=== PATIENT | female | born 1990 | race Caucasian/White ===

== ENCOUNTER 2021-01-10 12:53 | Outpatient (CLI) | payer BC ==
[2021-01-10 23:52] LABS: SARS-CoV-2 PCR by NAA Not Detected (NotDetected)
== END 2021-01-10 12:54 | disposition home or self-care (01) ==
LOC: CSHLAB 12:53
PROVIDERS: ATTEND Obstetrics & Gynecology
DX: Z20.822 Contact with and (suspected) exposure to COVID-19 (principal)
CPT/HCPCS: 87635; U0003; U0005

== ENCOUNTER 2021-01-13 23:26 | Inpatient (IN) | payer BC ==
[2021-01-14] MEDS ORDERED: Fentanyl 4 mcg/Bup 0.1% Cadd 100 ML ONE (00:10)
[2021-01-14 00:18] LABS: Mean Corpuscular HGB CONC 33.4 g/dL (32.0-36.0); Mean Corpuscular Hemoglobin 30.1 pg (27.0-33.0); Mean Corpuscular Volume 90.1 fl (81.6-98.3); Mean Platelet Volume 10.4 fl (7.4-10.4); Platelet Count 183 10x3/uL (150-450); RBC Distribution Width 12.8 % (11.5-14.5); Red Blood Cell (RBC) Count 4.65 10x6/uL (3.90-5.03); White Blood Cell (WBC) Count 10.8 10x3/uL (3.5-10.5)
[2021-01-14 00:23] VITALS: BMI 37.1
[2021-01-14 01:10] LABS: Syphilis Antibody Nonreactive (Nonreactive); Syphilis Antibody Index 0.02 S/CO (<1.00 Non-Reactive)
[2021-01-14 01:11] LABS: Hep B Surf Ag Non-Reactive S/CO (NonReactive)
[2021-01-14 01:20] LABS: HBSAg Index 0.19 S/CO (0-0.99)
[2021-01-14] MEDS ORDERED: Naloxone HCl 0.4 mg/ml Vial IVP PRN ×2 (01:26)
[2021-01-14] MEDS ORDERED: Ondansetron PF 4 MG/2 ML Vial IVP PRN (01:26)
[2021-01-14] MEDS ORDERED: Lactated Ringer's 500 ML IV PRN (01:26)
[2021-01-14] MEDS ORDERED: ePHEDrine 50 MG/ML VIAL SLOW IVP PRN (01:26)
[2021-01-14] MEDS ORDERED: diphenhydrAMINE 50 MG/ML VIAL IVP PRN (01:26)
[2021-01-14] MEDS ORDERED: Promethazine HCl 25 MG/ML VIAL IM PRN (01:26)
[2021-01-14] MEDS ORDERED: Acetaminophen 325 MG TAB PO PRN (01:26)
[2021-01-14] MEDS ORDERED: Fentanyl 4 mcg/Bupivacaine 0.1% Cassette 100 ML EPIDURAL SCH (01:30)
[2021-01-14] MEDS ORDERED: Communication Order-Pharmacy FS SCH (01:30)
[2021-01-14] MEDS ORDERED: NS w/ Oxytocin 30 units 500 ML ONE ×2 (01:48→03:22)
[2021-01-14] MEDS ORDERED: NS / Oxytocin 40 units/1000ml 1,000 ML IV SCH (03:43)
[2021-01-14] MEDS ORDERED: Benzocaine-Menthol 82.5 ML CAN TOP PRN (03:43)
[2021-01-14] MEDS ORDERED: Preparation H Ointment 28 GM TUBE PR PRN (03:43)
[2021-01-14] MEDS ORDERED: Bisacodyl 10 MG SUPP PR PRN (03:43)
[2021-01-14] MEDS ORDERED: hydrALAZINE 20 MG/ML VIAL SLOW IVP PRN (03:43)
[2021-01-14] MEDS ORDERED: traMADol HCl 50 MG TAB PO PRN (03:43)
[2021-01-14] MEDS ORDERED: Milk Of Magnesia 30 ML UDCUP PO PRN (03:43)
[2021-01-14] MEDS ORDERED: Ondansetron PF 4 MG/2 ML Vial ONE (04:02)
[2021-01-14] MEDS ORDERED: Bupivacaine 0.25% HCL 30 ML VIAL ONE (08:00)
[2021-01-14] MEDS ORDERED: Adacel (T-DAP) 0.5 ML SYRINGE IM ONE (09:00)
[2021-01-14] MEDS: Ferrous Sulfate 325 MG TAB PO SCH ×2 (09:08→18:04)
[2021-01-14] MEDS: Docusate Calcium (SURFAK) 240 MG CAP PO SCH ×2 (09:11→21:56)
[2021-01-14] MEDS: Prenatal Vitamin 1 TAB PO SCH (09:11)
[2021-01-14] MEDS: Ibuprofen 800 MG TAB PO SCH ×3 (09:12→21:57)
[2021-01-15] MEDS: Ibuprofen 800 MG TAB PO SCH (05:15)
[2021-01-15 08:11] VITALS: BP 107/58; TEMP 98
[2021-01-15] MEDS: Ferrous Sulfate 325 MG TAB PO SCH (08:53)
[2021-01-15] MEDS: Prenatal Vitamin 1 TAB PO SCH (09:08)
[2021-01-15] MEDS: Docusate Calcium (SURFAK) 240 MG CAP PO SCH (09:08)
== END 2021-01-15 14:15 | disposition home or self-care (01) | DRG 807 ==
LOC: CSHLD/OP 23:26 → CSHLD 23:58 → UNDOADMIN 01-14 03:49 → CSHLD 01-14 03:49 → CSHPP 01-14 04:45 → CSHLD 01-14 04:45 → UNDODISIN 01-15 14:15
PROVIDERS: ADMIT Obstetrics & Gynecology; ATTEND Obstetrics & Gynecology
PROC: 10E0XZZ Delivery of Products of Conception, External Approach (ICD-10-PCS; principal; 2021-01-15)
PROC: 0HQ9XZZ Repair Perineum Skin, External Approach (ICD-10-PCS; 2021-01-15)
DX: O70.0 First degree perineal laceration during delivery (principal); Z37.0 Single live birth; Z3A.39 39 weeks gestation of pregnancy
CPT/HCPCS: 36415; 51701; 85027; 86780; 86850; 86900; 86901; 87340; 99285; J2405; J2590; S0020

== ENCOUNTER 2021-01-20 14:53 | Emergency (ER) | payer BC | END 2021-01-20 16:37 | disposition home or self-care (01) | LOC: CSHERS 14:53 | DX: I83.811 Varicose veins of right lower extremity with pain (principal) ==

== ENCOUNTER 2023-06-16 15:24 | Inpatient (IN) | payer BC ==
[2023-06-16] MEDS ORDERED: NS w/ Oxytocin 30 units 500 ML IV SCH ×2 (20:01)
[2023-06-16] MEDS ORDERED: Lactated Ringer's 1,000 ML IV SCH (20:01)
[2023-06-16] MEDS ORDERED: Zolpidem Tartrate 5 MG TAB PO PRN (20:01)
[2023-06-16] MEDS ORDERED: fentaNYL 50 mcg/mL 1 mL Vial SLOW IVP PRN (20:01)
[2023-06-16] MEDS ORDERED: Misoprostol 200 MCG TAB PR PRN (20:01)
[2023-06-16] MEDS ORDERED: Diphenoxylate HCl/Atropine Tablet PO PRN ×2 (20:01)
[2023-06-16] MEDS ORDERED: Promethazine HCl 25 MG/ML VIAL IM PRN (20:01)
[2023-06-16] MEDS ORDERED: Carboprost 250 MCG/ML AMP IM PRN (20:01)
[2023-06-16] MEDS ORDERED: Lidocaine 1% (PF) 30 ML VIAL SC PRN (20:01)
[2023-06-16] MEDS ORDERED: Methylergonovine 0.2 MG/ML VIAL IM PRN (20:01)
[2023-06-16] MEDS ORDERED: Ibuprofen 800 MG TAB PO PRN (20:01)
[2023-06-16] MEDS ORDERED: hydrALAZINE 20 MG/ML VIAL SLOW IVP PRN (20:01)
[2023-06-16] MEDS ORDERED: Ondansetron PF 4 MG/2 ML Vial IVP PRN (20:01)
[2023-06-16] MEDS ORDERED: HYDROcodone/Acetaminophen 5/325 mg Tablet PO PRN ×2 (20:01)
[2023-06-16] MEDS ORDERED: Acetaminophen 500 MG TAB PO PRN (20:01)
[2023-06-16 20:07] VITALS: BMI 37.9
[2023-06-16] MEDS: Misoprostol 100 MCG TAB VAG SCH (21:22)
[2023-06-16 21:44] LABS: Hematocrit 40.8 % (34.9-44.5); Hemoglobin 14.4 g/dL (12.0-15.5); Mean Corpuscular HGB CONC 35.3 g/dL (32.0-36.0); Mean Corpuscular Hemoglobin 31.3 pg (27.0-33.0); Mean Corpuscular Volume 88.7 fl (81.6-98.3); Mean Platelet Volume 10.9 fl (7.4-10.4); Platelet Count 194 10x3/uL (150-450); RBC Distribution Width 12.7 % (11.5-14.5); White Blood Cell (WBC) Count 7.3 10x3/uL (3.5-10.5)
[2023-06-16 22:20] LABS: HBSAg Index 0.18 S/CO (0-0.99); Hep B Surf Ag - L&D Non-Reactive S/CO (NonReactive); Syphilis Antibody Nonreactive (Nonreactive); Syphilis Antibody Index 0.03 S/CO (<1.00 Non-Reactive)
[2023-06-17] MEDS: Misoprostol 100 MCG TAB VAG SCH (01:50)
[2023-06-17] MEDS ORDERED: fentaNYL/Ropivacaine Epidural 100 ML ONE (05:12)
[2023-06-17] MEDS ORDERED: Acetaminophen 325 MG TAB PO PRN (06:04)
[2023-06-17] MEDS ORDERED: diphenhydrAMINE 50 MG/ML VIAL IVP PRN (06:04)
[2023-06-17] MEDS ORDERED: Naloxone HCl 0.4 mg/ml Vial IVP PRN ×2 (06:04)
[2023-06-17] MEDS ORDERED: Ondansetron PF 4 MG/2 ML Vial IVP PRN (06:04)
[2023-06-17] MEDS ORDERED: Promethazine HCl 25 MG/ML VIAL IM PRN (06:04)
[2023-06-17] MEDS ORDERED: Lactated Ringer's 500 ML IV PRN (06:04)
[2023-06-17] MEDS ORDERED: Moisturizing Cream (Eucerin) 113 GM JAR TOP PRN (06:04)
[2023-06-17] MEDS ORDERED: ePHEDrine Sulfate 50 MG/10 ML VIAL SLOW IVP PRN (06:04)
[2023-06-17] MEDS ORDERED: Communication Order-Pharmacy FS SCH (06:15)
[2023-06-17] MEDS ORDERED: fentaNYL 2 mcg/Ropivacaine 0.2% Epidural 100 ML CADD EPIDURAL SCH (06:15)
[2023-06-17] MEDS ORDERED: Benzocaine-Menthol 82.5 ML CAN TOP PRN (10:34)
[2023-06-17] MEDS ORDERED: Bisacodyl 10 MG SUPP PR PRN (10:34)
[2023-06-17] MEDS ORDERED: hydrALAZINE 20 MG/ML VIAL SLOW IVP PRN (10:34)
[2023-06-17] MEDS ORDERED: Preparation H Ointment 28 GM TUBE PR PRN (10:34)
[2023-06-17] MEDS ORDERED: Boostrix 0.5 ML (Tdap) VIAL (>/=7 yrs of age) IM ONE (10:34)
[2023-06-17] MEDS ORDERED: Lanolin Ointment 7 GM TUBE TOP PRN (10:34)
[2023-06-17] MEDS ORDERED: Milk Of Magnesia 30 ML UDCUP PO PRN (10:34)
[2023-06-17] MEDS: Ibuprofen 800 MG TAB PO SCH ×2 (15:30→21:42)
[2023-06-17] MEDS: Ferrous Sulfate 325 MG TAB PO SCH (15:35)
[2023-06-17] MEDS ORDERED: traMADol HCl 50 MG TAB PO PRN ×2 (16:38)
[2023-06-17] MEDS: Docusate 100 MG CAP PO SCH (21:42)
[2023-06-18] MEDS: Ibuprofen 800 MG TAB PO SCH ×2 (05:05→13:42)
[2023-06-18 07:53] VITALS: BP 100/56; TEMP 98.1
[2023-06-18] MEDS ORDERED: Prenatal Vitamin 1 TAB PO SCH (09:00)
[2023-06-18] MEDS: Ferrous Sulfate 325 MG TAB PO SCH (13:43)
[2023-06-18] MEDS: Docusate 100 MG CAP PO SCH (13:44)
== END 2023-06-18 15:00 | disposition home or self-care (01) | DRG 807 ==
LOC: CSHLD 19:33 → CSHPP 06-17 13:00
PROVIDERS: ADMIT Obstetrics & Gynecology; ATTEND Obstetrics & Gynecology
PROC: 10E0XZZ Delivery of Products of Conception, External Approach (ICD-10-PCS; principal; 2023-06-17)
PROC: 0KQM0ZZ Repair Perineum Muscle, Open Approach (ICD-10-PCS; 2023-06-17)
DX: O70.1 Second degree perineal laceration during delivery (principal); Z37.0 Single live birth; Z3A.39 39 weeks gestation of pregnancy; O99.893 Other specified diseases and conditions complicating puerperium; M25.849 Other specified joint disorders, unspecified hand
CPT/HCPCS: 36415; 51702; 85027; 86780; 86850; 86900; 86901; 87340; J2590; J7120